=== PATIENT | female | born 1975 | race Caucasian/White ===

== ENCOUNTER → 2020-03-12 | Outpatient (CLI) | payer OTHER ==
--- NOTE | 2020-03-12 18:46 | Diagnostic Imaging Report ---
INDICATION: Pain in the right heel. TIME OF EXAM 5:29 PM Three views right foot were obtained. No definite radiopaque soft tissue foreign body is identified. There is a plantar calcaneal spur. Midfoot is unremarkable. Mild bunion deformity is present. Metatarsals and phalanges are otherwise intact. No fractures are seen. IMPRESSION: No acute abnormality is detected. Dictated by: Dictated on workstation # [id number]
== END ==
LOC: RAD FS 17:23
PROVIDERS: ATTEND Nurse Practitioner Family
DX: M79.671 Pain in right foot (principal)
CPT/HCPCS: 73630